=== PATIENT | female | born 1935 | race Caucasian/White ===

== ENCOUNTER → 2021-12-10 | Outpatient (CLI) | payer OTHER, MEDICARE ==
[~2021-12-10] MED LIST: ADULT ASPIRIN R81 MG PO; ATENOLOL 25 MG25 M1 PO; CALCIUM500 MG PO; FISH OIL 1,001000 M3 PO; LIPITOR10 MG PO; LOSARTAN-HCTZ1 EAC2 PO; NEXIUM20 MG PO; NORVASC10 MG PO; PEPCID20 MG PO; PRESERVISION A1 EAC2 PO; PREVACID30 MG PO; PROLIA60 MG/1 ML SUBQ; ROGAINE60 GM TOP; SINGULAIR 10 MG10 MG PO; VENTOLIN HFA 1818 GM INH; VITAMIN D325 MC5 PO; ZYRTEC10 M5 PO
== END ==
LOC: LAB 08:59
PROVIDERS: ATTEND Student in an Organized Health Care Education/Training Program
DX: U07.1 COVID-19 (principal)

== ENCOUNTER → 2022-01-07 | Outpatient (CLI) | payer OTHER, MEDICARE ==
[~2022-01-07] VITALS: Ht 160 cm; Wt 68.0 kg
--- NOTE | 2022-01-08 11:34 | P ---
[facility] [place] [address] PROCEDURE REPORT Name: GABRIEL AREVALO Room #: REG [facility] Balta#: [id number] Admission: 01/07/22 Attend Phys: Alejandro Fowler Discharge: Date of : 37 Report #: [id number] THIS REPORT FOR: cc: FAM - Family physician unknown FAM - Family physician unknown Alejandro Crawford MD ~ cc: Michell Johnson MD DATE OF SERVICE: 01/07/2022 DATE OF PROCEDURE: 01/07/2022 PROCEDURE PERFORMED: Colonoscopy with polypectomy and bleeding control. HISTORY OF PRESENT ILLNESS: The patient is an 86-year-old female who on recent routine physical exam was noted to be Hemoccult positive. She denies any obvious bright red blood per rectum or melena. She does have a history of colon polyps. Plan is for colonoscopy. DESCRIPTION OF PROCEDURE: The risks and benefits of the procedure were explained to the patient, those risks including, but not limited to bleeding, perforation and the risk of sedation. She understood these risks and gave informed consent. Sedation was given using propofol per Anesthesia. Next, a digital rectal exam was initially performed, which showed small external hemorrhoids, otherwise normal. Next, using a standard Olympus colonoscope, the scope was placed in the patient's anus and advanced under direct vision to the cecum. The overall prep was good. In the cecum, there was a 6 mm nonbleeding AVM. Due to her history of Hemoccult positive stools, I proceeded with treating this with a 7-Japanese bipolar cautery. No evidence of bleeding after treatment. Otherwise, normal cecum. The ileocecal valve was normal. In the proximal ascending colon, there was a 1 mm partially pedunculated polyp. This was removed by snare cautery, otherwise normal. The transverse and descending colon were normal. Multiple small diverticuli were noted in the sigmoid colon. No evidence of inflammation. The rectal mucosa was normal. On retroflexion, no abnormalities were noted. Again, small external hemorrhoids were seen. No evidence of bleeding. The scope was then withdrawn and the procedure terminated. The patient tolerated the procedure well. IMPRESSION: 1. Nonbleeding cecal arteriovenous malformation, status post cautery, as described above. 2. Ascending colon polyp. 3. Sigmoid diverticulosis. 4. External hemorrhoids. RECOMMENDATIONS: [address] [address] PROCEDURE REPORT Name: GABRIEL AREVALO Room #: REG RAFAEL Gifford#: [id number] Admission: 01/07/22 Attend Phys: Alejandro Fowler Discharge: Date of : 37 Report #: [id number] 1. Await biopsy results. 2. Cecal AVM could be etiology of heme-positive stools. We would observe at this point. Thank you for allowing me to participate in her care. <ELECTRONICALLY SIGNED> By: Alejandro Crawford MD 01/08/22 1134 1120 191 Alejandro Crawford MD /kenya
--- NOTE | 2022-01-08 11:34 | P ---
[facility] [place] [address] PROCEDURE REPORT Name: GABRIEL AREVALO Room #: REG FLORESIT[facility]ai Gifford#: [id number] Admission: 01/07/22 Attend Phys: Alejandro Fowler Discharge: Date of : 37 Report #: [id number] THIS REPORT FOR: cc: FAM - Family physician unknown FAM - Family physician unknown Alejandro Crawford MD ~ cc: Michell Johnson MD DATE OF SERVICE: 01/07/2022 PROCEDURE PERFORMED: Upper endoscopy with biopsies. HISTORY OF PRESENT ILLNESS: The patient is an 86-year-old female who was seen in the office by myself on 10/07/2021 for Hemoccult positive stools on routine exam. Last colonoscopy by myself was in 2011 in which adenomatous polyps were removed, also has a history of gastroesophageal reflux disease, on PPI therapy, had a large hiatal hernia, this was status post repaired approximately 7 years ago. She denies any dysphagia. She denies any obvious bright red blood per rectum or melena. Plan is for EGD and colonoscopy today. DESCRIPTION OF PROCEDURE: The risks and benefits of the procedure were explained to the patient, those risks including but not limited to bleeding, perforation and the risk of sedation. She understood these risks and gave informed consent. Sedation was given using propofol per anesthesia. Next, using a standard Olympus upper endoscope, the scope was placed in the patient's mouth and advanced under direct vision through the esophagus, stomach and into the second portion of the duodenum. The upper and mid esophagus were normal in appearance. In the distal esophagus, a possible short segment of El's was noted. Biopsies were obtained. No evidence of esophagitis. In the stomach on retroflexion, surgical changes were noted with previous hernia repair. There was a mild gastritis noted in the gastric body. No evidence of erosions or ulcerations. No evidence of bleeding. Biopsies were obtained to rule out H. pylori. The pylorus was normal and patent. The duodenal bulb, first and second portion were all normal. The scope was then withdrawn and the procedure terminated. The patient tolerated the procedure well. IMPRESSION: 1. Mild gastritis. 2. Surgical changes noted. 3. 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 4. Otherwise, normal upper endoscopy. RECOMMENDATIONS: 1. Await biopsy results. 2. Continue PPI therapy. 3. We will proceed with colonoscopy next today. [address] [address] PROCEDURE REPORT Name: GABRIEL AREVALO Room #: REG [facility] Gifford#: [id number] Admission: 01/07/22 Attend Phys: Alejandro Fowler Discharge: Date of : 37 Report #: [id number] Thank you for allowing me to participate in her care. <ELECTRONICALLY SIGNED> By: Alejandro Crawford MD 01/08/22 1134 1054 1854 Alejandro Crawford MD /kenya
--- NOTE | 2022-01-09 16:06 | PATH ---
[facility] [place] [place] [address] PATHOLOGY RPT PROCEDURE Name: ALIYA AREVALO Room #: REG RAFAEL Reza.#: [id number] Admission: 01/07/22 Date of : 37 Discharge: Report #: [id number] Path Case #: [id number] [facility] Accession Number: [id number] . 01 Material submitted: . PART A: gastrointestinal site - GASTRITIS R/O H. PYLORI PART B: esophagus - DISTAL ESOPHAGUS R/O GARCIA'S. Modifiers: distal PART C: colon - ASCENDING COLON POLYP. Modifiers: ascending . 01 Clinical history: . ESOPHAGOGASTRODUODENOSCOPY, COLONOSCOPY BLOOD IN STOOLS, REFLUX GASTRITIS . 02 Diagnosis: A. Gastric, endoscopic biopsy: - Gastric antral mucosa with features of mild chronic inactive gastritis. - An H. pylori immunohistochemical stain is negative for H. pylori-like organisms. . B. Distal esophagus, biopsy: - Squamous mucosa with features of mild reflux esophagitis. 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 - Negative for dysplasia or malignancy. . C. Ascending colon polyp, polypectomy: - Tubular adenoma. - Negative for high grade dysplasia or malignancy. . (ANK:joshua; 01/09/2022) QLM 01/09/2022 1059 Local . 02 Electronically signed: . Teagan Hernandez MD, Pathologist NPI- [id number] . 01 Gross description: . A. The specimen is received in formalin, labeled "Aliya Arevalo, gastritis". Received are 3 segments of pale garay tissue ranging in size from 0.2 cm to 0.4 cm in maximum dimensions. The specimen is submitted entirely in cassette A1. . B. The specimen is received in formalin, labeled "Aliya Arevalo, distal esophagus". Received are 3 segments of pale garay tissue ranging in size from 0.3 to 0.6 cm in maximum dimensions. The specimen is submitted entirely in cassette B1[place] [address] PATHOLOGY RPT PROCEDURE Name: AREVALOALIYA Room #: REG [facility].#: [id number] Admission: 01/07/22 Date of : 37 Discharge: Report #: [id number] Path Case #: [id number] C. The specimen is received in formalin, labeled "Aliya Arevalo, ascending colon polyp". Received are 2 segments of pale garay tissue ranging in size from 0.3 to 0.5 cm in maximum dimensions. The specimen is submitted entirely in cassette C1.([facility]; 01/08/2022) [facility] 01/08/2022 1605 [facility] . 02 Pathologist provided ICD-10: D12.2, K92.1, K21.9 . 02 CPT . 144794, 252050, 841710, F39825 Specimen Comment: A courtesy copy of this report has been sent to [phone], [phone] Specimen Comment: [id number] Specimen Comment: Report sent to , DR WALTERS / DR HARRY Performed at: [address], [place] [id number] MD Davion Bronson MD Phone: [phone] Performed at: [address] [id number] MD Teagan Hernandez MD Phone: [phone]
== END ==
LOC: GI 08:43
PROVIDERS: ATTEND Specialist
DX: R19.5 Other fecal abnormalities (principal); K21.9 Gastro-esophageal reflux disease without esophagitis; K29.50 Unspecified chronic gastritis without bleeding; K64.0 First degree hemorrhoids; K57.30 Diverticulosis of large intestine without perforation or abscess without bleeding; K63.89 Other specified diseases of intestine; K31.89 Other diseases of stomach and duodenum; K63.5 Polyp of colon; I10 Essential (primary) hypertension; E78.00 Pure hypercholesterolemia, unspecified; J45.909 Unspecified asthma, uncomplicated; Z90.710 Acquired absence of both cervix and uterus; Z98.890 Other specified postprocedural states; Z79.899 Other long term (current) drug therapy; Z85.828 Personal history of other malignant neoplasm of skin; Z20.822 Contact with and (suspected) exposure to COVID-19
CPT/HCPCS: 62110; 62900